=== PATIENT | male | born 1965 | race Caucasian/White ===

== ENCOUNTER 2020-07-12 15:04 | Inpatient (IN) | payer OTHER ==
[~2020-07-12] VITALS: Ht 188 cm; Wt 113.4 kg
[2020-07-12] MEDS ORDERED: SAVAYSA60 MG (15:39)
== END 2020-07-17 09:20 | disposition home or self-care (01) | DRG 866 ==
LOC: ER 15:04 → MEDJ 22:59
PROVIDERS: ADMIT Internal Medicine; ATTEND Internal Medicine
PROC: 4A033R1 Measurement of Arterial Saturation, Peripheral, Percutaneous Approach (ICD-10-PCS; principal; 2020-07-12)
PROC: CB2YYZZ Tomographic (Tomo) Nuclear Medicine Imaging of Respiratory System using Other Radionuclide (ICD-10-PCS; 2020-07-12)
DX: A90 Dengue fever [classical dengue] (principal); D69.49 Other primary thrombocytopenia; Z20.822 Contact with and (suspected) exposure to COVID-19